=== PATIENT | female | born 1975 | race Caucasian/White ===

== ENCOUNTER 2018-11-11 12:06 | Day surgery (SDC) | payer BC ==
[2018-11-10 17:22] VITALS: BMI 71.5
[2018-11-11] VITALS (16 sets, daily range): BP systolic 106–146; BP diastolic 66–84; PULSE 67–80; RESP 14–19; Ht 167.6 cm; Wt 109.1 kg
[~2018-11-11] VITALS: Ht 167.6 cm; Wt 109.1 kg
[~2018-11-11 12:06] MED LIST: AMIT10TA6 PO; CHOL2000 PO; CITA20TA11 PO; EST2 PO; LEVO75TA84 PO; LIDOCAINE 2% (SDV) 5 ML INJ ONE; PRAV20TA2 PO; PROPOFOL 200 MG INJ ONE; RANI150T35 PO
[2018-11-11] MEDS ORDERED: OXYB5TAB22 PO (13:14)
[2018-11-11] MEDS ORDERED: EST2 PO (13:14)
[2018-11-11] MEDS ORDERED: PRAM0.1224 PO (13:15)
[2018-11-11] MEDS ORDERED: LEVO88TA42 PO (13:15)
[2018-11-11] MEDS ORDERED: LOVA20TA PO (13:16)
[2018-11-11] MEDS ORDERED: DOCU-144 PO (13:16)
[2018-11-11] MEDS ORDERED: AMLO5TAB4 PO (13:16)
[2018-11-11] MEDS ORDERED: LEVO5TAB28 PO (13:18)
[2018-11-11] MEDS ORDERED: ERGO2000 PO (13:19)
[2018-11-11] MEDS ORDERED: OMEP20CA16 PO (13:21)
[2018-11-11] MEDS ORDERED: BUPIVACAINE 0.5% (SDV) 30 ML INJ ONE (14:19)
--- NOTE | 2018-11-11 14:31 | PREAC ---
Date/Time of Note Date/Time of Note DATE: 11/11/18 TIME: 14:26 Anesthesia Eval and Record Evaluation Time Pre-Procedure Interview DATE: 11/11/18 TIME: 14:26 Age 43 Sex female NPO: 8 hrs Preoperative diagnosis interpherangeal bone injury Planned procedure interpharangeal fusion of small finger Past Medical History Past Medical History: Includes Cardio: HTN, Dyslipidemia Endo: Hypothyroid Pulm: COPD, Asthma GI: Morbid obesity Psych: Anxiety Surgery & Anesthesia Issues No known issue Meds Anticoagulation: No Beta Brian within 24 hr: No Reason Beta Brian not given: Pt. not on B-Brian Reported Medications Omeprazole* (Omeprazole*) 20 Mg Capsule.dr, 20 MG PO DAILY, #30 CAP 11/11/18 Ergocalciferol (Vitamin D2) (VITAMIN D2) 2,000 Unit Tablet, 2000 UNIT PO DAILY, TAB 11/11/18 Levocetirizine Dihydrochloride (Xyzal) 5 Mg Tablet, 5 MG PO QPM, TAB 11/11/18 Docusate Sodium* (Colace*) 100 Mg Capsule, 100 MG PO DAILY, #30 CAP 11/11/18 Amlodipine Besylate* (Norvasc*) 5 Mg Tablet, 5 MG PO DAILY, TAB 11/11/18 Lovastatin* (Lovastatin*) 20 Mg Tablet, 20 MG PO HS, TAB 11/11/18 Pramipexole* (Mirapex*) 0.125 Mg Tablet, 0.125 MG PO BID, TAB 11/11/18 Levothyroxine Sodium* (Levoxyl*) 88 Mcg Tablet, 88 MCG PO BEFORE BREAKFAST, #30 TAB 11/11/18 Oxybutynin Chloride* (Ditropan* XL) 5 Mg Tabsr, 5 MG PO DAILY, TAB.SA 11/11/18 Estradiol* (Estrace*) 2 Mg Tab, 2 MG PO DAILY, TAB 11/11/18 Discontinued Reported Medications Ranitidine Hcl* (Zantac*) 150 Mg Tablet, 150 MG PO HS, TAB 08/23/15 Citalopram Hydrobromide* (Celexa*) 20 Mg Tablet, 20 MG PO DAILY, TAB 08/23/15 Amitriptyline Hcl* (Amitriptyline Hcl*) 10 Mg Tablet, 10 MG PO HS, TAB 08/23/15 Cholecalciferol* (Vitamin D3*) 2,000 Unit Cap, 2000 UNIT PO DAILY, CAP 08/23/15 Pravastatin Sodium (Pravastatin Sodium) 20 Mg Tablet, 20 MG PO HS, TAB 08/23/15 Levothyroxine Sodium* (Synthroid*) 75 Mcg Tablet, 75 MCG PO AC BREAKFAST, TAB 08/23/15 Estradiol* (Estrace*) 2 Mg Tab, 2 MG PO DAILY, TAB 08/23/15 Meds reviewed: Yes Allergies Coded Allergies: acetaminophen (Verified Allergy, Unknown, 08/23/15) albuterol (Verified Allergy, Unknown, 08/23/15) cephalexin (Verified Allergy, Unknown, 11/11/18) codeine (Verified Allergy, Unknown, 11/11/18) hydrocodone (Verified Allergy, Unknown, 08/23/15) latex (Verified Allergy, Unknown, 08/23/15) Allergies Reviewed: Yes Labs/Studies Labs Reviewed: Reviewed by anesthesiologist test: N/A Pre-procedure Exam Last vitals Vital Signs Date Temp Pulse Resp B/P (MAP) Pulse Ox O2 O2 Flow FiO2 Time Delivery Rate 11/11/18 97.7 79 16 122/76 97 Room Air 12:21 (91) Airway: Adequate mouth opening, Adequate thyromental dist Mallampati: Mallampati I Teeth: Normal Lung: Normal Heart: Normal ASA Physical Status ASA physical status: 2 Emergency: None Pre-operative Attestations Prior to commencing anesthesia and surgery, the patient was re-evaluated, there was verification of: *The patient's identity *The results of appropriate recent lab work and preoperative vital signs *The above evaluation not changing prior to induction *Anesthetic plan, risk benefits, alternative and complications discussed with patient/family; questions answered; patient/family understands, accepts and wishes to proceed. MARIO ORTIZ DO Nov 11, 2018 14:31
[2018-11-11] MEDS ORDERED: MIDAZOLAM 1 MG/ML 2 ML INJ ONE (14:40)
[2018-11-11] MEDS ORDERED: ROPIVACAINE 0.2% 20 ML VIAL ONE (14:40)
--- NOTE | 2018-11-11 14:50 | HPN ---
Date/Time of Note Date/Time of Note DATE: 11/11/18 TIME: 14:50 Interval H&P Admission Note Pt. seen H&P reviewed: No system changes ANGELA AGUIRRE Nov 11, 2018 14:50
[2018-11-11] MEDS ORDERED: FENTAnyl 50 MCG/ML VIAL ONE (15:04)
[2018-11-11] MEDS ORDERED: CEFAZOLIN 1 GM INJ ONE (15:06)
[2018-11-11] MEDS ORDERED: FAMOTIDINE 20 MG INJ ONE (15:08)
[2018-11-11] MEDS ORDERED: DEXAMETHASONE 4 MG/ML 5 ML INJ ONE (15:08)
[2018-11-11] MEDS ORDERED: ONDANSETRON 4 MG INJ ONE ×2 (15:08→17:10)
--- NOTE | 2018-11-11 16:00 | OPPN ---
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
--- NOTE | 2018-11-11 16:17 | PAC ---
Date/Time of Note Date/Time of Note DATE: 11/11/18 TIME: 16:16 Post-Anesthesia Notes Post-Anesthesia Note Last documented vital signs Vital Signs Date Temp Pulse Resp B/P (MAP) Pulse Ox O2 O2 Flow FiO2 Time Delivery Rate 11/11/18 98 78 23 146/71 100 Room Air 1616 Activity: WNL Respiratory function: WNL Cardiovascular function: WNL Mental status: Baseline Pain reasonably controlled: Yes Hydration appropriate: Yes Nausea/Vomiting absent: Yes MARIO ORTIZ DO Nov 11, 2018 16:17
--- NOTE | 2018-11-11 17:00 | OPR ---
DATE OF OPERATION: 11/11/2018 SURGEON: Eloy Jules MD ANESTHESIA: General plus digital nerve block. PREOPERATIVE DIAGNOSIS: Left small finger chronic soft tissue mallet with extension lag at the distal interphalangeal joint and swan neck deformity and early osteoarthritis. POSTOPERATIVE DIAGNOSIS: Left small finger chronic soft tissue mallet with extension lag at the distal interphalangeal joint and swan neck deformity and early osteoarthritis. PROCEDURE: Fusion of left small finger distal interphalangeal joint. OPERATIVE FINDINGS: Laxity at the left small finger terminal extensor tendon with early osteoarthritis at the DIPJ. INDICATION FOR PROCEDURE: A 43-year-old female with injury to left small finger, who failed conservative management and developed a swan neck deformity extensor lag at the DIPJ. After failing conservative measures, she elected to proceed with surgical intervention, understanding risks and benefits. DESCRIPTION OF PROCEDURE: The patient was seen in the preoperative area and all further questions were answered. Again, she gave informed consent understanding risks and benefits. She was taken to the operative suite and placed in the supine position. She was placed under general anesthesia and a digital nerve block was performed by the anesthesia team. Tourniquet was placed in left upper extremity and left upper extremity was prepped with ChloraPrep stick and draped in usual sterile fashion. Ancef 2 grams IV was given and Esmarch bandage was used to exsanguinate extremity and tourniquet inflated to 250 mmHg. A transverse incision over the left small finger DIPJ was utilized with sharp dissection carried down through skin and subcutaneous tissue. The extensor tendon was visualized and an arthrotomy was made dorsally through the extensor tendon and dorsal joint capsule. There were osteophytes present at the dorsal joint and there was laxity of extensor tendon. A debridement of the joint space was performed debriding the remaining articular cartilage as well as outermost cortical bone. After that, there was good bleeding cancellous bone. The wound was copiously irrigated and a guidewire for the Acumed AcuTwist was placed antegrade through the distal phalanx and then driven back retrograde into the middle phalanx. The tap to Acumed AcuTwist was used to develop a path for the screw and an Acumed AcuTwist screw 2 mm x 24 mm was placed across the joint space. X-ray imaging showed appropriate hardware placement and bony alignment. Wound was again irrigated and skin was closed with 5-0 nylon. Xeroform was placed over the wound followed by sterile gauze, Webril and a finger splint. Tourniquet was deflated after a total of 28 minutes. The patient was awakened from anesthesia. She was taken to the postoperative suite in stable condition and tolerated the procedure well without complication. SPECIMENS: None. ESTIMATED BLOOD LOSS: 5 mL. COUNTS: Sponge, instrument, needle counts were loosened. TOURNIQUET TIME: 20 minutes. CONDITION ON DISCHARGE: Stable. The patient was given a nonrefillable 5-day prescription for pain medication for surgery today. Dictated By: ELOY AVENDANO/JOSÉ MIGUEL Conf#: [id number] DID#: [id number]
[2018-11-11] MEDS ORDERED: ONDANSETRON 4 MG INJ IV STA (17:07)
[2018-11-12] MEDS ORDERED: LACTATED RINGER'S 1,000 ML IV* SCH (07:00)
[2018-11-12] MEDS ORDERED: CLINDAMYCIN 900 MG/D5W (PMX) 50 ML IVPB SCH (07:00)
== END 2018-11-11 18:05 | disposition home or self-care (01) ==
LOC: SDS 12:06
PROVIDERS: ATTEND Orthopaedic Surgery Hand Surgery
DX: M19.042 Primary osteoarthritis, left hand (principal); M19.142 Post-traumatic osteoarthritis, left hand; M20.012 Mallet finger of left finger(s); I10 Essential (primary) hypertension; E78.5 Hyperlipidemia, unspecified; F41.9 Anxiety disorder, unspecified; E66.01 Morbid (severe) obesity due to excess calories; G25.81 Restless legs syndrome
CPT/HCPCS: 26860; 73140; J0690; J1100; J2250; J2405; J2795; J3010; Z7610

== ENCOUNTER 2019-06-16 05:54 | Observation (INO) | payer BC ==
[2019-06-16] VITALS (23 sets, daily range): BP systolic 115–166; BP diastolic 54–133; PULSE 76–92; RESP 11–26; Ht 167.6 cm; Wt 124.3 kg
[~2019-06-16] VITALS: Ht 167.6 cm; Wt 124.3 kg
[~2019-06-16 05:54] MED LIST changes: -AMIT10TA6 PO; +AMLO5TAB4 PO; -CHOL2000 PO; +DOCU-144 PO; +ERGO2000 PO; +LEVO5TAB28 PO; -LEVO75TA84 PO; +LEVO88TA42 PO; -LIDOCAINE 2% (SDV) 5 ML INJ ONE; +LOVA20TA PO; +OMEP20CA16 PO; +OXYB5TAB22 PO; +PRAM0.1224 PO; -PRAV20TA2 PO; -PROPOFOL 200 MG INJ ONE
[2019-06-16] MEDS ORDERED: PROPOFOL 20 ML ONE (06:46)
[2019-06-16] MEDS ORDERED: FENTAnyl 50 MCG/ML VIAL ONE ×2 (06:46→09:02)
[2019-06-16] MEDS ORDERED: MIDAZOLAM 1 MG/ML 2 ML INJ ONE (06:46)
[2019-06-16] MEDS ORDERED: LIDOCAINE 2% (SDV) 5 ML INJ ONE (06:46)
[2019-06-16] MEDS ORDERED: CEFAZOLIN 1 GM INJ ONE (06:46)
[2019-06-16] MEDS ORDERED: ROPIVACAINE 0.5 % 30 ML VIAL ONE (06:49)
[2019-06-16] MEDS ORDERED: NEOMYC/POLYMYX/BACIT 30 GM OINT ONE (06:49)
[2019-06-16] MEDS ORDERED: LACTATED RINGER'S 1,000 ML IV SCH (07:00)
[2019-06-16] MEDS ORDERED: CLINDAMYCIN 900 MG (PMX) 50 ML IVPB ONE (07:28)
[2019-06-16] MEDS ORDERED: FAMOTIDINE 20 MG INJ ONE (07:30)
[2019-06-16] MEDS ORDERED: METOCLOPRAMIDE 10 MG INJ ONE (07:30)
[2019-06-16] MEDS ORDERED: ONDANSETRON 4 MG INJ ONE (07:30)
[2019-06-16] MEDS ORDERED: DEXAMETHASONE 4 MG/ML 5 ML INJ ONE (07:30)
[2019-06-16] MEDS ORDERED: MEPERIDINE 25 MG INJ IV PRN (08:00)
[2019-06-16] MEDS ORDERED: ALBUTEROL 0.083% (NEB) 2.5 MG/3 ML AMP HHN PRN (08:00)
[2019-06-16] MEDS ORDERED: ONDANSETRON 4 MG INJ IV PRN ×2 (08:00→14:00)
[2019-06-16] MEDS ORDERED: hydrALAzine 20 MG INJ IV PRN (08:00)
[2019-06-16] MEDS ORDERED: OXYCODONE/ACETAMINOPHEN (5/325) TAB PO PRN ×2 (08:00)
[2019-06-16] MEDS ORDERED: LABETALOL HCL 20MG INJ IV PRN (08:00)
[2019-06-16] MEDS ORDERED: HYDROmorphONE 1 MG/5 ML IV SYRINGE IV PRN ×3 (08:00)
[2019-06-16] MEDS ORDERED: ROCURONIUM 50 MG INJ ONE (08:14)
[2019-06-16] MEDS ORDERED: SUCCINYLCHOLINE CHLORIDE 100 MG/5 ML SYG IV ONE (08:14)
[2019-06-16] MEDS ORDERED: SUGAMMADEX SODIUM 200 MG/2 ML VIAL IV ONE (08:14)
[2019-06-16] MEDS: KETOROLAC 30 MG INJ IV SCH (10:00)
[2019-06-16] MEDS ORDERED: morphine 2 MG INJ IV PRN (10:00)
[2019-06-16] MEDS ORDERED: RACEPINEPHRINE 2.25%(NEB) 0.5 ML AMP ONE (10:16)
[2019-06-16] MEDS ORDERED: RACEPINEPHRINE 2.25%(NEB) 0.5 ML AMP HHN ONE (10:30)
[2019-06-16] MEDS ORDERED: HYDROmorphONE 0.5 MG/0.5 ML SYG IV STA (13:22)
[2019-06-16] MEDS ORDERED: GABAPENTIN 300 MG CAP PO ONE (13:30)
[2019-06-16] MEDS ORDERED: HYDROmorphONE 1 MG/ML SYG IV STA (13:58)
[2019-06-16] MEDS ORDERED: DIPHENHYDRAMINE 25 MG CAP PO PRN (14:00)
[2019-06-16] MEDS ORDERED: oxyCODONE 5 MG TAB PO PRN (14:00)
[2019-06-16] MEDS: CLINDAMYCIN 300 MG CAP PO SCH ×2 (16:57→23:24)
[2019-06-16] MEDS ORDERED: ROPIVACAINE 0.2% 20 ML VIAL ONE (17:52)
[2019-06-16] MEDS ORDERED: CITALOPRAM 20 MG TAB PO SCH (21:00)
[2019-06-16] MEDS ORDERED: OXYBUTYNIN (XL) 5 MG TAB PO SCH (21:00)
[2019-06-16] MEDS ORDERED: NON-FORMULARY/PATIENT OWN MED (Lovastatin* 20 MG) PO SCH (21:00)
[2019-06-16] MEDS ORDERED: NON-FORMULARY/PATIENT OWN MED (Ergocalciferol (Vitamin D2) (Vitamin D2) 2,000 UNIT) PO SCH (21:00)
[2019-06-16] MEDS ORDERED: RANITIDINE 150 MG TAB PO SCH (21:00)
[2019-06-16] MEDS ORDERED: AMLODIPINE 5 MG TAB PO SCH (21:00)
[2019-06-16] MEDS ORDERED: DOCUSATE SODIUM 100 MG CAP PO SCH (21:00)
[2019-06-16] MEDS ORDERED: NON-FORMULARY/PATIENT OWN MED (Omeprazole* 20 MG) PO SCH (21:00)
[2019-06-16] MEDS ORDERED: NON-FORMULARY/PATIENT OWN MED (Levocetirizine Dihydrochloride (Xyzal) 5 MG) PO SCH (21:00)
[2019-06-16] MEDS ORDERED: LORATADINE 10 MG TAB PO SCH (22:00)
[2019-06-16] MEDS ORDERED: ATORVASTATIN 10 MG TAB PO SCH (22:00)
[2019-06-16] MEDS: GABAPENTIN 300 MG CAP PO SCH (23:07)
[2019-06-16] MEDS: HYDROmorphONE 1 MG/ML SYG IV PRN (23:09)
[2019-06-16] MEDS: PRAMIPEXOLE 0.25 MG TAB PO SCH (23:27)
[2019-06-17] MEDS: HYDROmorphONE 1 MG/ML SYG IV PRN ×4 (02:09→12:58)
[2019-06-17 02:49] VITALS: BP 131/60; PULSE 81; RESP 18
[2019-06-17] MEDS ORDERED: PANTOPRAZOLE (EC) 40 MG TAB PO SCH (06:00)
[2019-06-17] MEDS: CLINDAMYCIN 300 MG CAP PO SCH (06:25)
[2019-06-17] MEDS ORDERED: LEVOTHYROXINE 88 MCG TAB PO SCH (07:00)
[2019-06-17 08:14] VITALS: BP 125/65; PULSE 72; RESP 20
[2019-06-17] MEDS ORDERED: CHOLECALCIFEROL 2,000 UNIT CAP PO SCH (09:00)
[2019-06-17] MEDS: KETOROLAC 30 MG INJ IV SCH (09:07)
[2019-06-17] MEDS: PRAMIPEXOLE 0.25 MG TAB PO SCH (09:09)
[2019-06-17] MEDS: GABAPENTIN 300 MG CAP PO SCH ×2 (09:09→13:29)
[2019-06-17 15:38] VITALS: BP 125/60; PULSE 68; RESP 20
[2019-06-17] MEDS ORDERED: ATORVASTATIN 10 MG TAB PO SCH (22:00)
== END 2019-06-17 16:35 | disposition home or self-care (01) ==
LOC: SDS 05:54 → REC 13:42 → 2NE 14:35
PROVIDERS: ADMIT Orthopaedic Surgery; ATTEND Orthopaedic Surgery
DX: S83.242A Other tear of medial meniscus, current injury, left knee, initial encounter (principal); X58.XXXA Exposure to other specified factors, initial encounter
CPT/HCPCS: 71045; 82306; 93005; 94664; 97116; 97161; 97530; C1713; G0378; J0690; J1100; J1170; J2250; J2405; J2765; J2795; J3010; J7120